=== PATIENT | male | born 1985 | race Caucasian/White ===

== ENCOUNTER 2016-11-08 12:49 | Emergency (ER) | payer SELFPAY ==
[2016-11-08 13:32] LABS: #Basophils 0.1 thou/uL (0.0-0.2); #Eosinphils 0.1 thou/uL (0.0-0.7); #Lymphocytes 2.2 thou/uL (1.20-3.40); #Monocytes 0.5 thou/uL (0.11-0.59); %Basophils 1.1 % (0.0-1.0); %Eosinophils 1.9 % (0.0-10.0); %Lymphocytes 32.5 % (21.0-51.0); %Monocytes 6.7 % (0.0-10.0); %Neutrophils 57.8 % (42.0-75.0); Hemoglobin 17.7 g/dL (14.0-18.0); Large Platelets SLIGHT; MDiff Complete? YES; Mean Corpuscular Hemoglobin 29.8 pg (27.0-31.0); Mean Corpuscular Volume 87.5 fl (80.0-94.0); Mean Platelet Volume 12.4 fL (7.4-10.4); Platelet Count 223 thou/uL (130-400); RBC Distribution Width 11.7 % (11.5-14.5); Red Blood Cell (RBC) Count 5.95 mill/uL (4.70-6.10); White Blood Cell (WBC) Count 6.9 thou/uL (4.8-10.8)
[2016-11-08 13:39] LABS: Chloride 102 mmol/L (98-107); Potassium 3.7 mmol/L (3.5-5.1); Sodium 136 mmol/L (136-145)
[2016-11-08 13:40] LABS: ALT (SGPT) 23 U/L (8-55); AST (SGOT) 17 U/L (5-34); Albumin 4.8 g/dL (3.5-5.0); Alkaline Phosphatase 71 U/L (40-150); Anion Gap 17 mmol/L (10-20); BUN (Urea Nitrogen) 24 mg/dL (8.9-20.6); Bilirubin, Total 0.9 mg/dL (0.2-1.2); Calc. Creatinine Clearance 0 mL/min (70-130); Calcium 9.3 mg/dL (7.8-10.44); Carbon Dioxide 21 mmol/L (22-29); Estimated GFR-MDRD 72; Globulin 3.2 g/dL (2.4-3.5); Glucose 118 mg/dL (70-105)
--- NOTE | 2016-11-08 20:59 | RAD ---
PORTABLE CHEST 11/08/16 No prior films are available for comparison. The heart is normal in size and the lungs are clear. No infiltrate or effusion was seen. The vessels show no congestion. The mediastinum appears normal and the trachea is midline. IMPRESSION: No acute thoracic findings. POS: HOME
== END 2016-11-08 14:17 | disposition home or self-care (01) ==
LOC: BURERS 12:49
DX: E86.0 Dehydration (principal); F17.290 Nicotine dependence, other tobacco product, uncomplicated
CPT/HCPCS: 71010; 80053; 83605; 84443; 85025; 96360

== ENCOUNTER 2019-10-10 16:13 | Emergency (ER) | payer SELFPAY ==
[2019-10-10] MEDS ORDERED: Metoprolol Tartrate 5 MG/5 ML VIAL ONE ×3 (16:39→17:18)
[2019-10-10] MEDS ORDERED: Aspirin Chewable 81 MG TAB ONE (16:39)
[2019-10-10 16:50] LABS: ALT (SGPT) 297 U/L (8-55); AST (SGOT) 116 U/L (5-34); Albumin 5.2 g/dL (3.5-5.0); Alkaline Phosphatase 68 U/L (40-110); Anion Gap 20 mmol/L (10-20); BUN (Urea Nitrogen) 16 mg/dL (8.9-20.6); Bilirubin, Total 0.6 mg/dL (0.2-1.2); Calc. Creatinine Clearance 0 mL/min (70-130); Calcium 9.9 mg/dL (7.8-10.44); Carbon Dioxide 20 mmol/L (22-29); Chloride 103 mmol/L (98-107); Estimated GFR-MDRD Greater than 90; Globulin 3.5 g/dL (2.4-3.5); Glucose 78 mg/dL (70-105); Lipase 18 U/L (8-78); Potassium 4.2 mmol/L (3.5-5.1); Protein, Total 8.7 g/dL (6.0-8.3); Sodium 139 mmol/L (136-145)
[2019-10-10 16:55] LABS: Hemoglobin 17.9 g/dL (14.0-18.0); Large Platelets SLIGHT; Lymphocytes 27 % (21-51); MDiff Complete? YES; Mean Corpuscular HGB CONC 33.1 g/dL (32.0-36.0); Mean Corpuscular Hemoglobin 30.7 pg (27.0-31.0); Mean Corpuscular Volume 92.9 fL (78.0-98.0); Mean Platelet Volume 11.4 fL (7.4-10.4); Monocytes 7 % (0-10); Neutrophil 66 % (42-75); Platelet Count 219 thou/uL (130-400); RBC Distribution Width 11.5 % (11.5-14.5); Red Blood Cell (RBC) Count 5.83 mill/uL (4.70-6.10)
--- NOTE | 2019-10-10 18:03 | RAD ---
PORTABLE CHEST: 10/10/19 An AP portable film at 1632 is compared with a 11/08/16 study. The heart is normal in size and the lungs are clear. No infiltrate or effusion was seen. There is no vascular congestion or edema. No mediastinal change of concern was encountered. IMPRESSION: No acute thoracic findings. POS: HOME
== END 2019-10-10 17:53 | disposition home or self-care (01) ==
LOC: BURERS 16:13
DX: R07.89 Other chest pain (principal); I10 Essential (primary) hypertension; R94.5 Abnormal results of liver function studies; F17.290 Nicotine dependence, other tobacco product, uncomplicated
CPT/HCPCS: 71045; 80053; 83690; 84484; 85025; 85379; 93005; 94760; 96374